=== PATIENT | male | born 1980 | race Caucasian/White ===

== ENCOUNTER 2017-12-29 11:29 | Emergency (ER) | payer SELFPAY ==
[~2017-12-29] VITALS: Ht 172.7 cm; Wt 76.0 kg
[2017-12-29 12:00] VITALS: BP 104/61
[2017-12-29] MEDS ORDERED: IPRATROPIUM BROMIDE (0.02%) 0.5MG/2.5ML NEB HHN STA (13:38)
[2017-12-29] MEDS ORDERED: ALBUTEROL (0.083%) 2.5MG/3ML NEB HHN STA (13:38)
== END 2017-12-29 16:33 | disposition left against medical advice (07) ==
LOC: ER 13:26
DX: J45.901 Unspecified asthma with (acute) exacerbation (principal)
CPT/HCPCS: 99283; J7611